=== PATIENT | female | born 1935 | race Caucasian/White ===

== ENCOUNTER → 2022-11-12 | Outpatient (CLI) | payer MEDICARE, OTHER ==
[~2022-11-12] MED LIST: ASPI-825 PO; CALC-590 PO; ERGO400C PO; PREN1TAB52 PO; SIMV-260 PO; TELM20 PO
== END | disposition home or self-care (01) ==
LOC: RADPV 12:59
PROVIDERS: ATTEND Internal Medicine
DX: M25.551 Pain in right hip (principal); M81.0 Age-related osteoporosis without current pathological fracture
CPT/HCPCS: 77080